=== PATIENT | female | born 1990 | race Caucasian/White ===

== ENCOUNTER 2021-09-30 07:09 | Inpatient (IN) | payer BC ==
[2021-09-30] MEDS ORDERED: DINOPROSTONE 10 MG VAGINAL SUPPOSITORY VG ONE ×2 (08:30→08:59)
[2021-09-30] MEDS ORDERED: DEXTROSE 5%-LACTATED RINGERS 1,000 ML IV SCH ×2 (08:30→09:00)
[2021-09-30 09:37] LABS: BASO % 0.6 % (0-2.0); EOS % 2.7 % (0-4.5); HEMATOCRIT 35.3 % (32.4-45.2); HEMOGLOBIN 11.7 GM/dL (10.7-15.3); LYMPH % 14.3 % (8-40); MCH 24.7 pg (25.7-33.7); MCHC 33.3 g/dl (32.0-36.0); MEAN CELL VOLUME 74.1 fl (80-96); MEAN PLT VOLUME 9.2 fl (7.5-11.1); MONO % 6.6 % (3.8-10.2); NEUT % 75.8 % (42.8-82.8); PLATELET COUNT 234 10^3/uL (134-434); RBC 4.77 M/mm3 (3.60-5.2); RDW 14.4 % (11.6-15.6); WHITE BLOOD COUNT 10.4 K/mm3 (4.0-10.0)
[2021-09-30 09:43] LABS: INR 0.85 (0.83-1.09); PROTHROMBIN TIME (PATIENT) 9.8 SEC (9.7-13.0)
[2021-09-30 09:45] LABS: ACTIVATED PTT 28.9 SECONDS (25.2-36.5)
[2021-09-30 10:06] LABS: BLOOD UREA NITROGEN 8.9 mg/dL (7-18); CALCIUM 8.3 mg/dL (8.5-10.1)
[2021-09-30 10:10] LABS: CREATININE 0.8 mg/dL (0.55-1.3)
[2021-09-30 11:10] VITALS: BMI 25.5
[2021-09-30 13:44] LABS: HEPATITIS B SURFACE AG MATERN NON-REACTIVE (NONREACTIVE)
[2021-09-30 13:45] LABS: SYPHILIS W/ RPR CONF NON-REACTIVE (NONREACTIVE)
[2021-09-30] MEDS ORDERED: FENTANYL/BUPIVACAINE/NS/PF - PCEA - 50 ML DISP.SYRIN EP ONE (19:45)
[2021-09-30] MEDS: ELECTROLYTE-148 SOLN 1,000 ML IV SCH (19:50)
[2021-09-30] MEDS ORDERED: BUPIVACAINE HCL/PF 0.25% (2.5MG/ML) 10 ML VIAL ONE (20:25)
[2021-09-30] MEDS: FENTANYL/BUPIVACAINE/NS/PF - PCEA - 50 ML DISP.SYRIN EP SCH (20:45)
[2021-09-30] MEDS ORDERED: NALOXONE HCL 0.4 MG/ML VIAL IVPUSH PRN (20:50)
[2021-10-01] MEDS: FENTANYL/BUPIVACAINE/NS/PF - PCEA - 50 ML DISP.SYRIN EP SCH ×2 (00:30→03:45)
[2021-10-01] MEDS ORDERED: FENTANYL/BUPIVACAINE/NS/PF - PCEA - 50 ML DISP.SYRIN EP ONE ×2 (00:30→03:43)
[2021-10-01] MEDS: ELECTROLYTE-148 SOLN 1,000 ML IV SCH (03:00)
[2021-10-01] MEDS ORDERED: OXYTOCIN 20 UNITS in 0.9% NS 20 UNIT/1,000 ML INFUS.BAG IV ONE (04:49)
[2021-10-01] MEDS ORDERED: OXYTOCIN 10 UNITS/ML VIAL ONE (04:49)
[2021-10-01] MEDS ORDERED: LIDOCAINE HCL 1% PRESERVATIVE FREE - 30ML VIAL ONE (07:13)
[2021-10-01] MEDS ORDERED: ACETAMINOPHEN 325 MG TABLET (FP) PO PRN (08:03)
[2021-10-01] MEDS ORDERED: METHYLERGONOVINE MALEATE 0.2 MG/1 ML AMP IM PRN (08:03)
[2021-10-01] MEDS ORDERED: BENZOCAINE 20% 57 GM BOTTLE TP PRN (08:03)
[2021-10-01] MEDS ORDERED: BISACODYL 10 MG SUPP.RECT RC PRN (08:03)
[2021-10-01] MEDS ORDERED: oxyCODONE HCL 5 MG TABLET PO PRN (08:03)
[2021-10-01] MEDS ORDERED: BENZOCAINE 28 GM HEMORRHOIDAL OINTMENT TP PRN (08:03)
[2021-10-01] MEDS ORDERED: IBUPROFEN 600 MG TABLET (FP) PO ONE (08:04)
[2021-10-01] MEDS: IBUPROFEN 600 MG TABLET (FP) PO PRN ×2 (08:05→18:45)
[2021-10-01] MEDS ORDERED: OXYTOCIN 20 UNITS in 0.9% NS 20 UNIT/1,000 ML INFUS.BAG IV SCH (08:15)
[2021-10-01] MEDS: WITCH HAZEL 50% (TUCKS) 40 PAD/JAR PAD TP PRN ×2 (09:49→18:49)
[2021-10-01] MEDS: PRENATAL VITAMINS W/ FOLIC ACID TABLET (FP) PO SCH (09:49)
[2021-10-02] MEDS: IBUPROFEN 600 MG TABLET (FP) PO PRN ×2 (05:55→16:09)
[2021-10-02 09:19] LABS: HEMATOCRIT 34.1 % (32.4-45.2); HEMOGLOBIN 11.1 GM/dL (10.7-15.3); MCH 24.7 pg (25.7-33.7); MCHC 32.6 g/dl (32.0-36.0); MEAN CELL VOLUME 75.7 fl (80-96); RDW 14.1 % (11.6-15.6); WHITE BLOOD COUNT 15.8 K/mm3 (4.0-10.0)
[2021-10-02 09:20] LABS: BASO % 0.6 % (0-2.0); EOS % 2.8 % (0-4.5); LYMPH % 13.5 % (8-40); MEAN PLT VOLUME 8.7 fl (7.5-11.1); MONO % 6.3 % (3.8-10.2); NEUT % 76.8 % (42.8-82.8); PLATELET COUNT 214 10^3/uL (134-434)
[2021-10-02] MEDS: PRENATAL VITAMINS W/ FOLIC ACID TABLET (FP) PO SCH (09:41)
[2021-10-02] MEDS: WITCH HAZEL 50% (TUCKS) 40 PAD/JAR PAD TP PRN (16:12)
[2021-10-02] MEDS: ELECTROLYTE-148 SOLN 1,000 ML IV SCH (17:09)
[2021-10-02] MEDS ORDERED: SENNOSIDES/DOCUSATE COMBO (SENNA PLUS) TABLET (UD) PO PRN (22:00)
[2021-10-03] MEDS: IBUPROFEN 600 MG TABLET (FP) PO PRN (06:00)
[2021-10-03 10:08] VITALS: BP 110/69; PULSE 90; TEMP 97.2
[2021-10-03] MEDS: PRENATAL VITAMINS W/ FOLIC ACID TABLET (FP) PO SCH (10:50)
== END 2021-10-03 14:10 | disposition home or self-care (01) | DRG 807 ==
LOC: JLDR 07:09 → J3W 10-01 09:30
PROVIDERS: ADMIT Obstetrics & Gynecology; ATTEND Obstetrics & Gynecology
PROC: 0KQM0ZZ Repair Perineum Muscle, Open Approach (ICD-10-PCS; principal; 2021-10-01)
PROC: 10E0XZZ Delivery of Products of Conception, External Approach (ICD-10-PCS; 2021-10-01)
DX: O48.0 Post-term pregnancy (principal); Z37.0 Single live birth; Z3A.40 40 weeks gestation of pregnancy; O70.1 Second degree perineal laceration during delivery
CPT/HCPCS: 36415; 59409; 80048; 85025; 85610; 85730; 86780; 86803; 86850; 86900; 86901; 87340; C9803-CS; U0003; U0005

== ENCOUNTER 2023-10-29 07:00 | Inpatient (IN) | payer BC ==
[2023-10-29] MEDS: ELECTROLYTE-148 SOLN 1,000 ML IV SCH (08:00)
[2023-10-29 08:17] VITALS: BMI 23.8
[2023-10-29 08:45] LABS: BASO % 0.6 % (0-2.0); EOS % 2.6 % (0-4.5); HEMATOCRIT 33.3 % (32.4-45.2); HEMOGLOBIN 10.9 GM/dL (10.7-15.3); LYMPH % 18.7 % (8-40); MCH 24.6 pg (25.7-33.7); MCHC 32.7 g/dl (32.0-36.0); MEAN CELL VOLUME 75.2 fl (80-96); MEAN PLT VOLUME 8.3 fl (7.5-11.1); NEUT % 70.1 % (42.8-82.8); PLATELET COUNT 278 10^3/uL (134-434); RBC 4.43 M/mm3 (3.60-5.2); RDW 14.5 % (11.6-15.6); WHITE BLOOD COUNT 11.1 K/mm3 (4.0-10.0)
[2023-10-29 08:54] LABS: INR 0.9 (0.83-1.09); PROTHROMBIN TIME (PATIENT) 10.4 SEC (9.7-13.0)
[2023-10-29 08:56] LABS: POTASSIUM 3.8 mmol/L (3.5-5.1)
[2023-10-29 08:56] LABS: ACTIVATED PTT 28.5 SECONDS (25.2-36.5)
[2023-10-29 08:57] LABS: CALCIUM 8.2 mg/dL (8.5-10.1)
[2023-10-29 08:58] LABS: BLOOD UREA NITROGEN 6.7 mg/dL (7-18)
[2023-10-29 09:01] LABS: CREATININE 0.5 mg/dL (0.55-1.3)
[2023-10-29] MEDS: OXYTOCIN 30 UNITS in 0.9% NS 30 UNIT/500 ML INFUS.BAG IVPB SCH (11:40)
[2023-10-29 15:59] LABS: HIV INTERPRETATION NEGATIVE (NEGATIVE)
[2023-10-29] MEDS ORDERED: FENTANYL/BUPIVACAINE/NS/PF - PCEA - 50 ML DISP.SYRIN EP ONE (16:16)
[2023-10-29] MEDS: FENTANYL/BUPIVACAINE/NS/PF - PCEA - 50 ML DISP.SYRIN EP SCH (16:50)
[2023-10-29] MEDS ORDERED: NALOXONE HCL 0.4 MG/ML VIAL IVPUSH PRN (17:29)
[2023-10-29] MEDS ORDERED: OXYTOCIN 20 UNITS in 0.9% NS 20 UNIT/1,000 ML INFUS.BAG IV ONE (17:53)
[2023-10-29] MEDS: OXYTOCIN 20 UNITS in 0.9% NS 20 UNIT/1,000 ML INFUS.BAG IV SCH (20:26)
[2023-10-29 21:15] LABS: CORD BASE EXCESS -2.8 mmol/L (0-2); CORD HCO3 22.1 mmHg (20-29); CORD PCO2 39.3 mmHg (30-78); CORD pH 7.368 (7.14-7.44)
[2023-10-29] MEDS ORDERED: BENZOCAINE 28 GM HEMORRHOIDAL OINTMENT TP PRN (21:23)
[2023-10-29] MEDS ORDERED: WITCH HAZEL 50% (TUCKS) 40 PAD/JAR PAD TP PRN (21:23)
[2023-10-29] MEDS ORDERED: METHYLERGONOVINE MALEATE 0.2 MG/1 ML AMP IM PRN (21:23)
[2023-10-29] MEDS ORDERED: oxyCODONE HCL 5 MG TABLET PO PRN (21:23)
[2023-10-29] MEDS ORDERED: BISACODYL 10 MG SUPP.RECT RC PRN (21:23)
[2023-10-29] MEDS ORDERED: ACETAMINOPHEN 325 MG TABLET (FP) PO PRN (21:23)
[2023-10-30] MEDS: IBUPROFEN 600 MG TABLET (FP) PO PRN (01:14)
[2023-10-30 07:14] LABS: BASO % 0.4 % (0-2.0); EOS % 1.7 % (0-4.5); HEMATOCRIT 32.2 % (32.4-45.2); HEMOGLOBIN 10.6 GM/dL (10.7-15.3); LYMPH % 13.9 % (8-40); MCHC 33.1 g/dl (32.0-36.0); MEAN CELL VOLUME 75.7 fl (80-96); MEAN PLT VOLUME 8.7 fl (7.5-11.1); MONO % 7.6 % (3.8-10.2); NEUT % 76.4 % (42.8-82.8); PLATELET COUNT 255 10^3/uL (134-434); RBC 4.25 M/mm3 (3.60-5.2); RDW 14.4 % (11.6-15.6); WHITE BLOOD COUNT 15.1 K/mm3 (4.0-10.0)
[2023-10-30] MEDS: PRENATAL VITAMINS W/ FOLIC ACID TABLET (FP) PO SCH (10:05)
[2023-10-30] MEDS: BENZOCAINE 20% 57 GM BOTTLE TP PRN (19:27)
[2023-10-30] MEDS: FENTANYL/BUPIVACAINE/NS/PF - PCEA - 50 ML DISP.SYRIN EP SCH (19:41)
[2023-10-30] MEDS ORDERED: SENNOSIDES/DOCUSATE COMBO (SENNA PLUS) TABLET (UD) PO PRN (22:00)
[2023-10-31 10:18] VITALS: BP 97/65; PULSE 87; RESP 18; TEMP 98
== END 2023-10-31 13:50 | disposition home or self-care (01) | DRG 807 ==
LOC: JLDR 07:00 → J3W 23:01
PROVIDERS: ADMIT Obstetrics & Gynecology; ATTEND Obstetrics & Gynecology
PROC: 10E0XZZ Delivery of Products of Conception, External Approach (ICD-10-PCS; principal; 2023-10-29)
DX: O70.1 Second degree perineal laceration during delivery (principal); Z37.0 Single live birth; Z3A.39 39 weeks gestation of pregnancy
CPT/HCPCS: 36415; 36600; 59409; 80048; 82803; 85025; 85610; 85730; 86780; 86850; 86900; 86901; 87389